=== PATIENT | female | born 1970 | race Two or more races ===

== ENCOUNTER → 2024-01-30 | Emergency (ER) | payer OTHER ==
[~2024-01-30] VITALS: Ht 170.2 cm; Wt 111.6 kg
[~2024-01-30] MED LIST: BENADRYL50 MG PO; CONEX TABLET1 EACH PO; FLEXERIL10 MG PO; MEDROL8 MG PO; N; NABUMETONE750 MG PO; NASONEX17 GM NASAL; ZITHROMAX200 MG PO
== END | disposition left against medical advice (07) ==
LOC: ER 16:39
DX: Z53.21 Procedure and treatment not carried out due to patient leaving prior to being seen by health care provider (principal)

== ENCOUNTER → 2024-09-28 | Emergency (ER) | payer OTHER ==
[~2024-09-28] VITALS: Ht 172.7 cm; Wt 110.2 kg
[~2024-09-28] MED LIST changes: +ACETAMINOPHEN650 M2; +ACETAMINOPHEN650 M2 PO; +ALLERGY RELIEF10 M3 PO; +AMOX1TAB5 PO; +BENADRYL25 MG; +BENADRYL25 MG PO; +MECLIZINE HCL25 MG PO; +MEDROLPACK PO; +MUPIROCIN1 G1 TOP; +NAPROSYN375 MG PO; +NEBUSAL4 M1 IH; +NEURONTIN300 MG PO; +NORFLEX100MG PO; +ORASEP SPRAY30 ML MM; +PERCOCET 5-3251 EACH PO; +VISTARIL25 MG PO; +XANAX1 MG PO; +ZITHROMAX500 MG PO
== END | disposition left against medical advice (07) ==
LOC: ER 04:35
DX: Z53.21 Procedure and treatment not carried out due to patient leaving prior to being seen by health care provider (principal)

== ENCOUNTER → 2024-10-12 | Emergency (ER) | payer OTHER ==
[~2024-10-12] VITALS: Ht 170.2 cm; Wt 110.2 kg
== END | disposition left against medical advice (07) ==
LOC: ER 01:27
DX: Z53.21 Procedure and treatment not carried out due to patient leaving prior to being seen by health care provider (principal)